=== PATIENT | female | born 1985 | race Caucasian/White ===

== ENCOUNTER 2016-10-11 10:21 | Outpatient (CLI) | payer BC ==
[~2016-10-11] VITALS: Ht 152.4 cm; Wt 67.3 kg
[~2016-10-11 10:21] MED LIST: MOTRIN 600600 MG/TAB PO; MULTI VITAMINS1 TAB; NAPROXEN 3375 MG/TAB PO; PERCOCET 325 MG1 TA2 PO; PRENATAL1 TA2 PO
[2016-10-11] MEDS ORDERED: TUMS500 MG (10:46)
[2016-10-11] MEDS ORDERED: MULTIPLE VITAMI1 CAP PO (10:46)
[2016-10-11 11:20] LABS: PH 7 (5-8); SQUAMOUS EPITHELIAL 0-2 /hpf; URINE APPEARANCE Clear; URINE BACTERIA None Seen /hpf; URINE BILIRUBIN Negative (NEGATIVE); URINE BLOOD Negative (NEGATIVE); URINE COLOR Yellow; URINE GLUCOSE Negative (NEGATIVE); URINE KETONE Negative (NEGATIVE); URINE RBC 0-2 /hpf; URINE UROBILINOGEN Negative (NEGATIVE); URINE WBC None Seen /hpf
[2016-10-11 12:05] VITALS: BP 123/86
== END 2016-10-11 12:05 | disposition home or self-care (01) ==
LOC: LDRO 10:21
PROVIDERS: Obstetrics & Gynecology
DX: O26.893 Other specified pregnancy related conditions, third trimester (principal); M54.89 Other dorsalgia; Z3A.37 37 weeks gestation of pregnancy

== ENCOUNTER 2016-10-19 07:07 | Inpatient (IN) | payer BC ==
[2016-10-19] VITALS (17 sets, daily range): BP systolic 112–129; BP diastolic 70–88; PULSE 64–102; TEMP 98.3–98.6
[~2016-10-19 07:07] MED LIST changes: +MULTIPLE VITAMI1 CAP PO; +TUMS500 MG
[2016-10-19 08:19] LABS: BASO % 0.4 % (0.0-2.0); EOS # 0.1 (0.0-0.7); EOS % 1.1 % (0-4.0); GRAN % 69.9 % (42.2-75.2); LYMPH % 17.3 % (20.0-51.0); MEAN CELL VOLUME 90 fl (80.0-100.0); MEAN CORPUSCULAR HGB CONC 34 g/dl (33.0-37.0); MEAN PLATELET VOLUME 9.7 fl (7.4-10.4); MONO # 0.6 (0.1-0.6); MONO % 10.9 % (1.7-9.3); PLATELET COUNT 151 K/mm3 (130-400); RED BLOOD COUNT 3.43 M/mm3 (4.10-5.30); REDCELL DISTRIBUTION WIDTH-CV 14.2 % (11.5-14.5); WHITE BLOOD COUNT 5.7 K/mm3 (4.8-10.8)
[2016-10-19 08:40] LABS: HEMATOCRIT 30.8 % (37.0-47.0); HEMOGLOBIN 10.5 g/dl (12.5-16.0); MEAN CORPUSCULAR HEMOGLOBIN 31 pg (27.0-31.0)
[2016-10-20 07:30] VITALS: BP 120/85; PULSE 92; TEMP 98.5
[2016-10-20] MEDS ORDERED: IBU600 MG PO (07:55)
[2016-10-20 08:39] LABS: HEMOGLOBIN 10.8 g/dl (12.5-16.0)
== END 2016-10-20 14:20 | disposition home or self-care (01) | DRG 775 ==
LOC: LDR 07:07 → OB 14:59
PROVIDERS: Obstetrics & Gynecology
PROC: 10E0XZZ Delivery of Products of Conception, External Approach (ICD-10-PCS; principal; 2016-10-19)
DX: O36.0130 Maternal care for anti-D [Rh] antibodies, third trimester, not applicable or unspecified (principal); Z3A.39 39 weeks gestation of pregnancy; Z37.0 Single live birth
CPT/HCPCS: J2590; J2790; J2795; J7120

== ENCOUNTER → 2016-11-18 | Outpatient (CLI) | payer BC ==
[~2016-11-18] MED LIST changes: +IBU600 MG PO; +NAPROSYN500 MG PO; +SENOKOT8.6 MG PO; +VALIUM 5MG T5 MG/TAB PO
== END ==
LOC: COL.RAD 14:14
DX: M86.8X8 Other osteomyelitis, other site (principal)

== ENCOUNTER 2016-11-23 12:30 | Outpatient (RCR) | payer BC ==
[~2016-11-23 12:30] MED LIST changes: -NAPROSYN500 MG PO; -SENOKOT8.6 MG PO; -VALIUM 5MG T5 MG/TAB PO
[2017-02-03] MEDS ORDERED: PERCOCET 325 MG1 TA2 PO (16:11)
[2017-02-03] MEDS ORDERED: VALIUM 5MG T5 MG/TAB PO (16:11)
[2017-02-03] MEDS ORDERED: SENOKOT8.6 MG PO (16:11)
[2017-02-03] MEDS ORDERED: NAPROSYN500 MG PO (16:11)
== END 2017-02-07 09:50 | disposition home or self-care (01) ==
LOC: MKS.ESL.PT 12:30
DX: M89.8X8 Other specified disorders of bone, other site (principal)

== ENCOUNTER 2017-02-03 16:05 | Emergency (ER) | payer BC ==
[~2017-02-03] VITALS: Ht 167.6 cm; Wt 57.7 kg
[2017-02-03 16:06] VITALS: TEMP 98.8
[2017-02-03] MEDS ORDERED: SENOKOT8.6 MG PO (16:11)
[2017-02-03] MEDS ORDERED: PERCOCET 325 MG1 TA2 PO (16:11)
[2017-02-03] MEDS ORDERED: VALIUM 5MG T5 MG/TAB PO (16:11)
[2017-02-03] MEDS ORDERED: NAPROSYN500 MG PO (16:11)
[2017-02-03 17:05] LABS: BASO % 0.3 % (0.0-2.0); EOS # 0.1 (0.0-0.7); EOS % 2.1 % (0-4.0); GRAN # 2.1 (1.4-6.5); GRAN % 56.2 % (42.2-75.2); HEMOGLOBIN 12.5 g/dl (12.5-16.0); LYMPH # 1.2 (1.2-3.4); LYMPH % 30.6 % (20.0-51.0); MEAN CELL VOLUME 86 fl (80.0-100.0); MEAN CORPUSCULAR HEMOGLOBIN 30 pg (27.0-31.0); MEAN CORPUSCULAR HGB CONC 34 g/dl (33.0-37.0); MEAN PLATELET VOLUME 9.5 fl (7.4-10.4); MONO # 0.4 (0.1-0.6); MONO % 10.8 % (1.7-9.3); PLATELET COUNT 166 K/mm3 (130-400); RED BLOOD COUNT 4.24 M/mm3 (4.10-5.30); REDCELL DISTRIBUTION WIDTH-CV 12.3 % (11.5-14.5); WHITE BLOOD COUNT 3.8 K/mm3 (4.8-10.8)
[2017-02-03 17:06] LABS: HEMATOCRIT 36.6 % (37.0-47.0)
[2017-02-03 17:09] LABS: CALCIUM 8.9 mg/dL (8.4-10.2); CREATININE, serum 0.67 mg/dL (0.52-1.25); POTASSIUM 3.8 mmol/L (3.4-5.0)
[2017-02-03 18:09] VITALS: BP 118/71; PULSE 74
== END 2017-02-03 18:09 | disposition home or self-care (01) ==
LOC: COL.ER 16:05
PROVIDERS: Emergency Medicine
DX: R60.0 Localized edema (principal); M79.605 Pain in left leg; Z98.890 Other specified postprocedural states

== ENCOUNTER 2017-04-26 15:15 | Outpatient (RCR) | payer BC ==
[~2017-04-26 15:15] MED LIST changes: +NAPROSYN500 MG PO; +SENOKOT8.6 MG PO; +VALIUM 5MG T5 MG/TAB PO
== END 2017-05-01 ==
LOC: WSPT
DX: M25.852 Other specified joint disorders, left hip (principal); M86.8X8 Other osteomyelitis, other site; Z96.642 Presence of left artificial hip joint

== ENCOUNTER 2017-07-17 15:45 | Outpatient (RCR) | payer BC | END 2017-08-01 | LOC: WSPT | DX: Z47.89 Encounter for other orthopedic aftercare (principal); Z98.890 Other specified postprocedural states ==

== ENCOUNTER 2017-10-19 12:30 | Outpatient (RCR) | payer BC | END 2017-11-01 | disposition home or self-care (01) | LOC: WSPT | DX: M25.852 Other specified joint disorders, left hip (principal); Z88.2 Allergy status to sulfonamides ==

== ENCOUNTER 2017-12-28 15:45 | Outpatient (RCR) | payer BC | END 2018-01-01 09:50 | disposition home or self-care (01) | LOC: WSPT 15:45 | DX: S73.102D Unspecified sprain of left hip, subsequent encounter (principal) ==

== ENCOUNTER → 2018-02-27 | Outpatient (CLI) | payer BC | LOC: COL.RAD 14:15 | DX: M85.38 Osteitis condensans, other site (principal); M25.552 Pain in left hip; G89.29 Other chronic pain; R10.2 Pelvic and perineal pain ==

== ENCOUNTER 2020-02-14 11:15 | Outpatient (RCR) | payer BC | END 2020-05-05 | disposition still patient (30) | LOC: WSOT | DX: M18.11 Unilateral primary osteoarthritis of first carpometacarpal joint, right hand (principal) ==

== ENCOUNTER → 2020-04-02 | Outpatient (CLI) | payer BC | LOC: COL.RAD 07:38 | DX: M25.551 Pain in right hip (principal); M25.552 Pain in left hip; Z98.890 Other specified postprocedural states | CPT/HCPCS: A9585; Q9967 ==

== ENCOUNTER → 2020-12-04 | Outpatient (CLI) | payer BC | LOC: COL.RAD 11-27 14:58 | DX: M54.16 Radiculopathy, lumbar region (principal) ==

== ENCOUNTER → 2021-05-03 | Outpatient (CLI) | payer BC ==
--- NOTE | 2021-04-28 14:56 | NUR ---
MESSAGE LEFT ON VOICEMAIL WITH INSTRUCTIONS AND TO HAVE PT CALL BACK.
[~2021-05-03] VITALS: Ht 167.6 cm; Wt 56.2 kg
[2021-05-03 09:25] VITALS: BP 114/82; PULSE 74; TEMP 98.2
[2021-05-03 10:10] VITALS: BP 119/89; PULSE 72
== END ==
LOC: COL.RAD 08:48
DX: E04.1 Nontoxic single thyroid nodule (principal)

== ENCOUNTER → 2021-06-11 | Outpatient (CLI) | payer BC | LOC: COL.LAB 08:51 | DX: Z20.822 Contact with and (suspected) exposure to COVID-19 (principal) ==

== ENCOUNTER 2021-09-29 13:30 | Outpatient (RCR) | payer BC | END 2021-10-04 | disposition home or self-care (01) | LOC: WSPT | DX: S39.013A Strain of muscle, fascia and tendon of pelvis, initial encounter (principal); S73.192D Other sprain of left hip, subsequent encounter; M25.852 Other specified joint disorders, left hip; Z98.890 Other specified postprocedural states ==

== ENCOUNTER 2021-10-29 14:15 | Outpatient (RCR) | payer BC | END 2021-11-01 | disposition home or self-care (01) | LOC: WSPT | DX: S39.013A Strain of muscle, fascia and tendon of pelvis, initial encounter (principal); S73.192D Other sprain of left hip, subsequent encounter; M25.852 Other specified joint disorders, left hip; Z98.890 Other specified postprocedural states ==

== ENCOUNTER 2021-11-30 14:15 | Outpatient (RCR) | payer BC | END 2021-12-02 | LOC: WSPT | DX: S39.013A Strain of muscle, fascia and tendon of pelvis, initial encounter (principal); S73.192A Other sprain of left hip, initial encounter; M25.852 Other specified joint disorders, left hip; Z98.890 Other specified postprocedural states ==

== ENCOUNTER → 2022-02-01 | Outpatient (RCR) | payer BC | END | disposition home or self-care (01) | LOC: WSPT | DX: S39.013D Strain of muscle, fascia and tendon of pelvis, subsequent encounter (principal); S73.192D Other sprain of left hip, subsequent encounter; M25.852 Other specified joint disorders, left hip; Z98.890 Other specified postprocedural states; X58.XXXD Exposure to other specified factors, subsequent encounter ==

== ENCOUNTER 2022-03-01 12:45 | Outpatient (RCR) | payer BC | END 2022-03-03 | disposition home or self-care (01) | LOC: WSPT | DX: S39.013A Strain of muscle, fascia and tendon of pelvis, initial encounter (principal); S73.192D Other sprain of left hip, subsequent encounter; M25.852 Other specified joint disorders, left hip; Z98.890 Other specified postprocedural states ==

== ENCOUNTER 2022-03-29 15:00 | Outpatient (RCR) | payer BC | END 2022-04-03 | disposition home or self-care (01) | LOC: WSC | DX: S39.013D Strain of muscle, fascia and tendon of pelvis, subsequent encounter (principal); S73.192D Other sprain of left hip, subsequent encounter; M25.852 Other specified joint disorders, left hip; Z98.890 Other specified postprocedural states; X58.XXXD Exposure to other specified factors, subsequent encounter ==

== ENCOUNTER 2022-05-03 15:00 | Outpatient (RCR) | payer BC | END 2022-05-04 | disposition still patient (30) | LOC: WSPT | DX: S73.192D Other sprain of left hip, subsequent encounter (principal); S39.013D Strain of muscle, fascia and tendon of pelvis, subsequent encounter; M25.852 Other specified joint disorders, left hip; Z98.890 Other specified postprocedural states; X58.XXXD Exposure to other specified factors, subsequent encounter ==

== ENCOUNTER 2022-05-03 16:25 | Outpatient (RCR) | payer BC | END 2022-05-04 | LOC: WSPT | DX: M79.671 Pain in right foot (principal); M79.672 Pain in left foot ==

== ENCOUNTER 2022-07-01 14:15 | Outpatient (RCR) | payer BC | END 2022-07-04 | LOC: WSPT | DX: S39.013D Strain of muscle, fascia and tendon of pelvis, subsequent encounter (principal); S73.192D Other sprain of left hip, subsequent encounter; M25.852 Other specified joint disorders, left hip; Z98.890 Other specified postprocedural states; X58.XXXD Exposure to other specified factors, subsequent encounter ==